=== PATIENT | male | born 1970 | race Hispanic/Latino ===

== ENCOUNTER 2021-07-28 21:17 | Emergency (ER) | payer SELFPAY ==
[~2021-07-28] VITALS: Ht 165.1 cm; Wt 77.0 kg
[~2021-07-28 21:17] MED LIST: NAPROSYN500 MG PO; ULTRAM50 M1 PO
[2021-07-28 21:30] VITALS: BP 145/98
[2021-07-28 21:40] VITALS: BP 142/88
[2021-07-28] MEDS ORDERED: GENTAMICIN SULF5 ML OD (21:51)
[2021-07-28 22:00] VITALS: BP 140/93
== END 2021-07-28 22:14 | disposition home or self-care (01) | DRG 125 ==
LOC: ED 21:17
PROC: 08CSXZZ Extirpation of Matter from Right Conjunctiva, External Approach (ICD-10-PCS; principal; 2021-07-28)
DX: T15.01XA Foreign body in cornea, right eye, initial encounter (principal); F17.210 Nicotine dependence, cigarettes, uncomplicated; X58.XXXA Exposure to other specified factors, initial encounter; Y93.89 Activity, other specified; Y92.89 Other specified places as the place of occurrence of the external cause; Y99.0 Civilian activity done for income or pay